=== PATIENT | female | born 1975 | race Hispanic/Latino ===

== ENCOUNTER 2018-11-12 23:13 | Emergency (ER) | payer OTHER ==
[2018-11-13] MEDS ORDERED: DEXAMETHASONE SOD PHOSPHATE 10MG/ML 1ML VIAL ONE (00:05)
== END 2018-11-13 00:15 | disposition home or self-care (01) ==
LOC: EDH 23:13
DX: T78.49XA Other allergy, initial encounter (principal); L29.9 Pruritus, unspecified; R09.81 Nasal congestion; X58.XXXA Exposure to other specified factors, initial encounter
CPT/HCPCS: 96372; 99283; J1100